=== PATIENT | female | born 1995 ===

== ENCOUNTER 2018-02-26 12:14 | Outpatient (CLI) | payer BC ==
--- NOTE | 2018-02-26 15:28 | CT ---
CT ABDOMEN AND PELVIS WITH CONTRAST: 02/26/18 HISTORY: R10.33 - periumbilical abdominal pain. R63.4 - weight loss. COMPARISON: None. FINDINGS: Lung bases are clear. No pericardial effusion. The spleen, pancreas, liver are unremarkable as well as the gallbladder. There is a 2 x 2 mm interpol ar left renal collecting system calculus. No dilated loops of large or small bowel. The adnexa appear unremarkable. No acute osseous abnormality. The appendix is felt to be visualized and appears normal. Multiple follicles of the right ovary. There is no hydroureteronephrosis or secondary evidence of a recently passed stone. IMPRESSION: 2 x 2 mm calculus interpolar left kidney. No evidence of obstructive uropathy. No other acute inflamm atory process in the abdomen or pelvis. POS: [id number]
== END 2018-02-26 12:15 | disposition home or self-care (01) ==
LOC: BICCT 12:14
PROVIDERS: ATTEND Internal Medicine Gastroenterology
DX: R10.33 Periumbilical pain (principal); R63.4 Abnormal weight loss; N20.0 Calculus of kidney
CPT/HCPCS: 74177